=== PATIENT | male | born 1960 | race American Indian/Alaskan Native ===

== ENCOUNTER 2017-12-11 14:02 | Emergency (ER) | payer MEDICARE ==
[2017-12-11 15:44] LABS: Basophils % (Auto) 0.7 % (0.0-1.8); Eosinophils % (Auto) 0.2 % (0.0-4.3); Hematocrit 47.3 % (35.5-45.6); Hemoglobin 15.6 gm/dl (11.8-15.2); Lymphocytes # (Auto) 1.2 K/mm3 (1.2-5.4); Lymphocytes % (Auto) 17.4 % (13.4-35.0); Mean Corpuscular HGB Conc 33 % (32-34); Mean Corpuscular Hemoglobin 32 pg (28-32); Mean Corpuscular Volume 96 fl (84-94); Monocytes # (Auto) 0.6 K/mm3 (0.0-0.8); Monocytes % (Auto) 8.5 % (0.0-7.3); Platelet Count 351 K/mm3 (140-440); Red Blood Count 4.94 M/mm3 (3.65-5.03); Red Cell Distribution Width 15.2 % (13.2-15.2)
[2017-12-11 16:02] LABS: Alanine Aminotransferase 21 units/L (7-56); Albumin 5.3 g/dL (3.9-5); BUN/Creatinine Ratio 15; Blood Urea Nitrogen 16 mg/dL (9-20); Calcium 10.6 mg/dL (8.4-10.2); Hemolysis Index 16
[2017-12-11 20:13] LABS: Bacteria,Urine 1+ /HPF (Negative); Bilirubin,Urine NEG (Negative); Blood,Urine SM (Negative); Calcium Oxalate Crystals,Urine FEW; Color,Urine Yellow (Yellow); Hyaline Casts,Urine 3 /LPF; Mucus,Urine FEW /HPF; Nitrite,Urine NEG (Negative); Urobilinogen,Urine < 2.0 mg/dL (<2.0)
[2017-12-12] MEDS ORDERED: NACL 0.9% 1000 ML 1,000 ML IV ONE (00:07)
[2017-12-12] MEDS ORDERED: ROCEPHIN/NS 1 GM/50 ML 1 GM/50 ML BAG IV ONE (00:08)
[2017-12-12] MEDS ORDERED: cefTRIAXone 1 GM in NACL 0.9% 20 ML IV ONE (00:15)
[2017-12-12] MEDS ORDERED: ZOFRAN IV ONE (00:21)
[2017-12-12] MEDS ORDERED: MORPHINE IV ONE (00:21)
--- NOTE | 2017-12-12 00:27 | Emergency Department Report ---
ED Abdominal Pain HPI - General Chief Complaint: Abdominal Pain Stated Complaint: ABD PN, COUGHING UP BLOOD Time Seen by Provider: 12/12/17 00:04 Source: patient Mode of arrival: Wheelchair Limitations: No Limitations - History of Present Illness Initial Comments: 57 yo male who comes in today due to abdominal pain. He states that it has been present times three days. He also states that he has a history of pancreatitis. Abdominal pain described as 9/10, epigastric, sharp, with associated nausea, and vomiting. He denies any radiation of the pain. He also admits to a history of excessive etoh abuse. -: days(s) (three ) Location: epigastric Radiation: none Migration to: no migration Severity: moderate Severity scale (0 -10): 8 Quality: aching, sharp Consistency: constant Improves With: nothing Worsens With: eating Context: other (history of pancreatitis) Associated Symptoms: nausea, vomiting Treatments Prior to Arrival: other (none) - Related Data Allergies Allergy/AdvReac Type Severity Reaction Status Date / Time No Known Allergies Allergy Verified 12/11/17 15:01 ED Review of Systems ROS: Stated complaint: ABD PN, COUGHING UP BLOOD Other details as noted in HPI Constitutional: denies: chills, fever Eyes: denies: eye pain, eye discharge, vision change ENT: as per HPI Respiratory: denies: cough, shortness of breath, wheezing Cardiovascular: denies: chest pain, palpitations Endocrine: no symptoms reported Gastrointestinal: as per HPI Genitourinary: denies: urgency, dysuria Musculoskeletal: denies: back pain, joint swelling, arthralgia Skin: denies: rash, lesions Neurological: denies: headache, weakness, paresthesias Psychiatric: denies: anxiety, depression Hematological/Lymphatic: denies: easy bleeding, easy bruising ED Past Medical Hx - Past Medical History Hx Hypertension: Yes Hx Diabetes: Yes - Surgical History Additional Surgical History: BKA knee amputation - Social History Smoking Status: Never Smoker Substance Use Type: None, Alcohol (past history of etoh abuse ) ED Physical Exam - General Limitations: No Limitations General appearance: alert, in no apparent distress - Head Head exam: Present: atraumatic, normocephalic - Eye Eye exam: Present: normal appearance - ENT ENT exam: Present: mucous membranes moist - Neck Neck exam: Present: normal inspection - Respiratory Respiratory exam: Present: normal lung sounds bilaterally. Absent: respiratory distress - Cardiovascular Cardiovascular Exam: Present: tachycardia - GI/Abdominal GI/Abdominal exam: Present: tenderness, diminished bowel sounds - Extremities Exam Extremities exam: Present: normal inspection - Back Exam Back exam: Present: normal inspection - Neurological Exam Neurological exam: Present: alert, oriented X3 - Psychiatric Psychiatric exam: Present: normal affect, normal mood - Skin Skin exam: Present: warm, dry, intact, normal color. Absent: rash ED Course Vital Signs 12/11/17 12/11/17 12/12/17 15:01 20:32 00:35 Temperature 98.4 F 98.7 F Pulse Rate 112 H 120 H 107 H Respiratory 16 16 16 Rate Blood Pressure 151/90 154/84 Blood Pressure 146/74 [Left] O2 Sat by Pulse 98 96 99 Oximetry - Reevaluation(s) Reevaluation #1: 12/12/17 00:30 Patient admits to a history of excessive etoh abuse and pancreatitis. CT abdomen/pelvis pending. Reevaluation #2: 12/12/17 02:[address] Capone about the patient. CT abdomen/pelvis pending. Dr. Cedillo was informed about the patient. Suspect acute vs chronic pancreatitis. Reevaluation #3: 12/12/17 02:31 Dr. Cedillo informed about pending CT abdomen/pelvis. ED Medical Decision Making - Lab Data Result diagrams: 12/11/17 15:20 12/11/17 15:20 - Medical Decision Making Acute pancreatitis Chronic pancreatitis UTI History of etoh abuse Dehydration - Differential Diagnosis Acute pancreatitis, chronic pancreatitis, uti, history of etoh abuse, dehyd Critical care attestation.: If time is entered above; I have spent that time in minutes in the direct care of this critically ill patient, excluding procedure time. ED Disposition Clinical Impression: Acute pancreatitis, Chronic pancreatitis, History of ETOH abuse, UTI (urinary tract infection), Dehydration Disposition: -09 OP ADMIT IP TO THIS HOSP Is pt being admited?: Yes Does the pt Need Aspirin: No Condition: Stable Referrals: PRIMARY CARE, [Primary Care Provider] - 3-5 Days Time of Disposition: 02:30
--- NOTE | 2017-12-12 00:33 | XRay Report ---
FINAL REPORT PROCEDURE: XR CHEST 1V AP TECHNIQUE: Chest radiograph anteroposterior view. CPT 75579 HISTORY: chest pain COMPARISON: No prior studies are available for comparison. FINDINGS: Heart: Normal. Mediastinum/Vessels: Normal. Lungs/Pleural space: Normal. Bony thorax: No acute osseous abnormality. Life support devices: None. IMPRESSION: No acute cardiopulmonary abnormality.
[2017-12-12 01:57] LABS: Creatine Kinase MB 3.8 ng/mL (0.0-4.0)
[2017-12-12 01:59] LABS: Lipase 36 units/L (13-60)
--- NOTE | 2017-12-12 02:32 | Cat Scan Report ---
FINAL REPORT PROCEDURE: CT ABDOMEN PELVIS W CON TECHNIQUE: Computerized axial tomography of the abdomen and pelvis was performed after the IV injection of iodinated nonionic contrast. HISTORY: abdominal pain/history of pancreatitis COMPARISON: No prior studies are available for comparison. FINDINGS: Visualized lower thorax: No significant abnormality. Liver: Normal size and attenuation. Spleen: Normal size and attenuation. Gallbladder and biliary system: Normal. Pancreas: Normal. Adrenals: Normal. Kidneys: There is a 2.5 centimeter parapelvic cyst in the upper pole of the left kidney.. GI tract: There is mucosal thickening of the esophagus and the gastroesophageal junction which could be due to inflammation. No discrete mass is seen. The stomach and small bowel are unremarkable. Colon is unremarkable. The appendix is normal.. Lymph nodes and mesentery: Normal. Vasculature: Normal. Bladder: Normal. Reproductive organs: Normal. Peritoneum: There is no ascites or free air, abscess or adenopathy.. Musculoskeletal structures: No significant abnormality. Other: There is no hernia.. IMPRESSION: There is a 2.5 centimeter parapelvic cyst in the upper pole of the left kidney.. There is mucosal thickening of the esophagus and the gastroesophageal junction which could be due to inflammation. No discrete mass is seen. The stomach and small bowel are unremarkable. Colon is unremarkable. The appendix is normal.. There is no ascites or free air, abscess or adenopathy..
[2017-12-12 03:20] VITALS: BP 139/83
== END 2017-12-12 04:30 | disposition home or self-care (01) ==
LOC: ED 14:02
DX: K85.90 Acute pancreatitis without necrosis or infection, unspecified (principal); K86.1 Other chronic pancreatitis; N39.0 Urinary tract infection, site not specified; E86.0 Dehydration; I10 Essential (primary) hypertension; E11.9 Type 2 diabetes mellitus without complications
CPT/HCPCS: 36415; 71045; 74177; 80053; 81001; 82550; 82553; 83690; 84484; 85025; 96365; 96375; 99284; J0696; J2270; J2405; J7030; Q9967

== ENCOUNTER 2018-04-09 19:26 | Emergency (ER) | payer MEDICARE ==
[~2018-04-09 19:26] MED LIST: ADRENALIN ONE; ATROPINE 0.1% (CARDIAC) ONE; CALCIUM CHLORIDE IV ONE; CORDARONE IV ONE; SODIUM BICARBONATE IV ONE; XYLOCAINE CARDIAC IV ONE
[2018-04-09] MEDS ORDERED: ADRENALIN 8 MG in NACL 0.9% 250ML 242 ML IV SCH (20:00)
--- NOTE | 2018-04-10 00:23 | Emergency Department Report ---
Blank Doc - Documentation Documentation: 57-year-old male who presented to the ER in cardiac arrest. According to EMS, there called to the scene due to history of seizure. The patient started moaning and they loaded him into the back of EMS. At that point, patient went unresponsive with asystole on the monitor. An LMA was placed and ACLS was started. He can arrive to the ER with active chest compressions. Patient displayed P on the monitor. ACLS was begun. Patient was successfully intubated. This is confirmed by capnography, conversation and the tube, and bilateral breath sounds. Throughout the code, patient had a rhythm change from PEA to V. fib. Patient underwent multiple defibrillation, administration of amiodarone/lidocaine, and ultimately double synchronous defibrillation. However , patient remained in cardiac arrest. During some moments, patient had organized rhythm with a pulse. The rhythm show what appeared to be diffuse ST elevations. It may be concern for a massive AR. Patient with back into cardiac arrest with PEA on the monitor. I discuss with the family that the patient's heart had been stopped for a prolonged period of time. I gave him a guarded prognosis. They asked me to continue trying to restart his heart. We performed 3 more rounds of ACLS, but were unsuccessful with restarting the patient's heart. Unfortunately, the patient at 2013.
== END 2018-04-10 00:56 ==
LOC: ED 19:26
DX: I46.9 Cardiac arrest, cause unspecified (principal)
CPT/HCPCS: 31500; 92950; 99285; J0171; J0282; J0461; J2001; J7050